=== PATIENT | female | born 1985 | race Caucasian/White ===

== ENCOUNTER 2019-02-28 09:56 | Outpatient (REF) | payer BC, SELFPAY ==
[2019-02-28 12:54] LABS: ALT 31 U/L (12-78); AST 23 U/L (15-37); Albumin 3.7 g/dL (3.4-5.0); Alkaline Phosphatase 74 U/L (46-116); Anion Gap 12.6 mmol/L (3-11); BUN 15 mg/dL (7-18); Bilirubin, Total 0.4 mg/dL (0.2-1.0); CO2 25.4 mmol/L (21.0-32.0); CREATININE 0.75 mg/dL (0.55-1.02); Calcium 8.3 mg/dL (8.5-10.1); Calculated LDL 133 mg/dL; Chloride 102 mmol/L (98-107); Cholesterol 194 mg/dL (50-200); Glucose 93 mg/dL (70-100); HDL Cholesterol 40 mg/dL (40-60); Potassium 3.5 mmol/L (3.5-5.1); Sodium 140 mmol/L (136-145); Total Protein 7.3 g/dL (6.4-8.2); Triglyceride 105 mg/dL (30-150)
== END 2019-02-28 10:16 ==
LOC: NCHCN 09:56
PROVIDERS: PCP Family Medicine; Visit Provider Family Medicine
DX: Z00.00 Encounter for general adult medical examination without abnormal findings (principal); F41.8 Other specified anxiety disorders; J45.20 Mild intermittent asthma, uncomplicated; E66.9 Obesity, unspecified
CPT/HCPCS: 80053; 80061; 83721

== ENCOUNTER 2019-04-13 19:18 | Outpatient (REF) | payer BC, SELFPAY ==
--- NOTE | 2019-04-13 14:40 | PAPFT_PTH ---
PATIENT: Francesca Figueroa LOC: [facility] U#:[id number] AGE/SX: 33/F ROOM: RE04/13/[address]: Denae Garcia : 1985 BED: DIS: 04/13/2019 SPEC #: [id number] RECD: 04/14/19 13:01 STATUS: CY REShreya #: [id number] BAR: 04/13/19 14:[address]: Denae Garcia DEPT: [facility] Cytology RECD BY: Chantal Jackson ENTERED: 04/14/19 13:01 SP TYPE: PAPFT OTHR DR: Kadi Tovar Tissues: 1 - CX/ENDOCX FOR PAP SMEARS Procedures: PAP THIN PREP/UVM Screening HPV DNA PROBE Comments: [id number] (CHLAMYDIA/GC)
[2019-04-17 14:13] LABS: Chlamydia Result Negative; GC Result Negative; Specimen Description SEE COMMENTS
== END 2019-04-13 19:38 ==
LOC: NCHCN 19:18
PROVIDERS: PCP Family Medicine; Visit Provider Nurse Practitioner Family
DX: Z00.00 Encounter for general adult medical examination without abnormal findings (principal); Z11.3 Encounter for screening for infections with a predominantly sexual mode of transmission; Z12.4 Encounter for screening for malignant neoplasm of cervix; Z11.51 Encounter for screening for human papillomavirus (HPV); Z01.419 Encounter for gynecological examination (general) (routine) without abnormal findings
CPT/HCPCS: 87491; 87591; 88142; 87624

== ENCOUNTER 2019-05-29 13:06 | Outpatient (REF) | payer BC, SELFPAY ==
[2019-05-29 21:31] LABS: TSH 4.64 uIU/mL (0.36-3.74)
== END 2019-05-29 13:26 ==
LOC: NCHCN 13:06
PROVIDERS: PCP Family Medicine; Visit Provider Internal Medicine
DX: I10 Essential (primary) hypertension (principal); R53.83 Other fatigue; R05 Cough; M54.6 Pain in thoracic spine
CPT/HCPCS: 85027; 84443

== ENCOUNTER 2019-06-01 17:13 | Outpatient (REF) | payer BC, SELFPAY ==
[2019-06-01 21:58] LABS: HCT 33.1 % (36.0-46.0); HGB 11.5 g/dL (12.0-15.5); Mean Corp. HGB Concentration 34.7 g/dL (32.0-36.0); Mean Corpuscular Hemoglobin 24.1 pg (27.0-33.0); Mean Corpuscular Volume 69.2 fL (80-95); Mean Platelet Volume 12.4 fL (8.0-11.0); RBC 4.78 m/cumm (4.00-5.20); RBC Distribution Width 14.3 % (11.7-14.6); White Blood Cell Count 12.49 k/cumm (4.4-10.8)
[2019-06-01 22:28] LABS: Platelet Count 230 x1000/uL (130-400)
== END 2019-06-01 17:33 ==
LOC: NCHCO 17:13
PROVIDERS: PCP Family Medicine; Visit Provider Family Medicine
DX: R05 Cough (principal); M54.6 Pain in thoracic spine; I10 Essential (primary) hypertension; R53.83 Other fatigue
CPT/HCPCS: 85027

== ENCOUNTER 2019-06-13 16:22 | Outpatient (REF) | payer BC, SELFPAY ==
[2019-06-13 22:56] LABS: Total Iron Binding Capacity 405 ug/dL (250-450)
[2019-06-13 23:12] LABS: Ferritin 37 ng/mL (8-388); T4 8.4 ug/dL (4.5-12.5)
[2019-06-16 15:53] LABS: Hemoglobinopathy Interpretat Interpretation:; Other Hemoglobin SEE COMMENTS
== END 2019-06-13 16:42 ==
LOC: NCHCN 16:22
PROVIDERS: PCP Family Medicine; Visit Provider Nurse Practitioner Family
DX: D50.9 Iron deficiency anemia, unspecified (principal); R94.6 Abnormal results of thyroid function studies
CPT/HCPCS: 85027; 82728; 83020; 83550; 84436

== ENCOUNTER 2019-10-30 12:46 | Outpatient (CLI) | payer BC, SELFPAY ==
[2019-10-30 13:21] LABS: PTT Activated 19.8 sec (21.0-31.4)
[2019-10-30 14:35] LABS: TSH (W/Ref FT4) 2.68 uIU/mL (0.36-3.74)
== END 2019-10-30 13:06 ==
PROVIDERS: PCP Family Medicine; Visit Provider Nurse Practitioner Family
DX: D68.9 Coagulation defect, unspecified (principal); R94.6 Abnormal results of thyroid function studies
CPT/HCPCS: 36415; 84443; 85730

== ENCOUNTER 2020-03-06 17:54 | Outpatient (REF) | payer BC, SELFPAY ==
[2020-03-06 21:54] LABS: HCT 35.6 % (36.0-46.0); HGB 11.9 g/dL (12.0-15.5); Mean Corp. HGB Concentration 33.4 g/dL (32.0-36.0); Mean Corpuscular Hemoglobin 23.2 pg (27.0-33.0); Mean Corpuscular Volume 69.4 fL (80-95); Mean Platelet Volume 11.5 fL (8.0-11.0); Platelet Count 184 x1000/uL (130-400); RBC 5.13 m/cumm (4.00-5.20); RBC Distribution Width 14.9 % (11.7-14.6); White Blood Cell Count 11.93 k/cumm (4.4-10.8)
[2020-03-06 22:19] LABS: ALT 24 U/L (14-59); AST 21 U/L (15-37); Alkaline Phosphatase 60 U/L (46-116); BUN 16 mg/dL (7-18); Bilirubin, Total 0.3 mg/dL (0.2-1.0); CREATININE 0.74 mg/dL (0.55-1.02); Calcium 9.6 mg/dL (8.5-10.1); Chloride 99 mmol/L (98-107); Glucose 100 mg/dL (74-106); Potassium 3.9 mmol/L (3.5-5.1); Sodium 137 mmol/L (136-145); Total Protein 7.3 g/dL (6.4-8.2)
== END 2020-03-06 18:14 ==
LOC: NCHCN 17:54
PROVIDERS: PCP Family Medicine; Visit Provider Family Medicine
DX: R53.83 Other fatigue (principal)
CPT/HCPCS: 80053; 85027; 84443

== ENCOUNTER 2020-04-17 13:57 | Outpatient (REF) | payer BC, SELFPAY ==
[2020-04-22 18:06] LABS: SARS-CoV-2 RNA Undetected (Undetected); SARS-CoV-2 Specimen Source Nasopharynx
== END 2020-04-17 14:17 ==
LOC: NCHCN 13:57
PROVIDERS: PCP Family Medicine; Visit Provider Family Medicine
DX: Z20.828 Contact with and (suspected) exposure to other viral communicable diseases (principal)
CPT/HCPCS: U0003

== ENCOUNTER 2020-06-10 19:09 | Outpatient (REF) | payer BC, SELFPAY ==
[2020-06-13 15:27] LABS: Patient Race White; SARS-CoV-2 RNA Undetected (Undetected); SARS-CoV-2 Specimen Source Nasal
== END 2020-06-10 19:29 ==
LOC: NCHCN 19:09
PROVIDERS: PCP Family Medicine; Visit Provider Family Medicine
DX: R05 Cough (principal)
CPT/HCPCS: U0003

== ENCOUNTER 2020-08-02 22:17 | Outpatient (REF) | payer BC, SELFPAY ==
[2020-08-06 10:07] LABS: COVID-19 RT-PCR Result NEGATIVE (Negative)
== END 2020-08-02 22:37 ==
LOC: NCHCN 22:17
PROVIDERS: PCP Family Medicine; Visit Provider Family Medicine
DX: Z20.828 Contact with and (suspected) exposure to other viral communicable diseases (principal)
CPT/HCPCS: U0003

== ENCOUNTER 2020-08-27 14:29 | Outpatient (REF) | payer BC, SELFPAY ==
[2020-08-29 03:39] LABS: COVID-19 RT-PCR UVMMC Result Negative (Negative)
== END 2020-08-27 14:49 ==
LOC: NCHCN 14:29
PROVIDERS: PCP Family Medicine; Visit Provider Family Medicine
DX: Z20.828 Contact with and (suspected) exposure to other viral communicable diseases (principal)
CPT/HCPCS: U0003

== ENCOUNTER 2021-10-07 15:27 | Outpatient (REF) | payer BC, SELFPAY ==
[2021-10-07 21:25] LABS: Anion Gap 9.3 mmol/L (3-11); BUN 10 mg/dL (7-18); CO2 26.7 mmol/L (21.0-32.0); CREATININE 0.8 mg/dL (0.55-1.02); Calcium 8.7 mg/dL (8.5-10.1); Chloride 102 mmol/L (98-107); Glucose 94 mg/dL (74-106); Potassium 3.9 mmol/L (3.5-5.1); Sodium 138 mmol/L (136-145)
[2021-10-07 21:37] LABS: HCT 39.9 % (36.0-46.0); HGB 12.5 g/dL (11.2-15.7); MCH 22.6 pg (27.0-33.0); MCHC 31.3 % (32.0-36.0); MCV 72.3 fL (80-95); MPV 11.4 fL (8.0-11.0); Platelet Count 302 10^3/uL (130-400); RBC 5.52 10^6/uL (3.93-5.22); RDW 14.1 % (11.7-14.6); WBC 8.19 10^3/uL (4.4-10.8)
== END 2021-10-07 15:28 | disposition home or self-care (01) ==
LOC: NCHCN 15:27
PROVIDERS: PCP Family Medicine; Visit Provider Nurse Practitioner Family
DX: I10 Essential (primary) hypertension (principal)
CPT/HCPCS: 80048; 85027

== ENCOUNTER 2021-12-15 16:08 | Outpatient (REF) | payer BC, SELFPAY | END 2021-12-15 16:09 | disposition home or self-care (01) | LOC: NCHCN 16:08 | PROVIDERS: PCP Family Medicine; Visit Provider Family Medicine | DX: N39.0 Urinary tract infection, site not specified (principal) | CPT/HCPCS: 87077; 87086; 87186 ==

== ENCOUNTER 2023-12-29 15:55 | Outpatient (REF) | payer BC, SELFPAY ==
[2023-12-29 22:07] LABS: HCT 35.6 % (36.0-46.0); HGB 11.8 g/dL (11.2-15.7); MCH 23.6 pg (27.0-33.0); MCHC 33.1 % (32.0-36.0); Platelet Count 256 10^3/uL (130-400); RBC 4.99 10^6/uL (3.93-5.22); RDW 13.7 % (11.7-14.6); RDW-SD 34.6 fL; WBC 12.46 10^3/uL (4.4-10.8)
[2023-12-29 22:24] LABS: ALT 35 U/L (14-59); AST 22 U/L (15-37); Albumin 4.1 g/dL (3.4-5.0); Alkaline Phosphatase 76 U/L (46-116); Anion Gap 10.2 mmol/L (3-11); BUN 18 mg/dL (7-18); Bilirubin, Total 0.3 mg/dL (0.2-1.0); CO2 27.8 mmol/L (21.0-32.0); CREATININE 0.9 mg/dL (0.55-1.02); Calcium 9.3 mg/dL (8.5-10.1); Calculated LDL 99 mg/dL (<100); Chloride 101 mmol/L (98-107); Cholesterol 194 mg/dL (<200); Estimated GFR 84.44 (mL/min/1.73m2); Glucose 108 mg/dL (74-106); HDL Cholesterol 42 mg/dL (40-60); Potassium 3.7 mmol/L (3.5-5.1); Sodium 139 mmol/L (136-145); Total Protein 7.5 g/dL (6.4-8.2); Triglyceride 269 mg/dL (<150)
[2023-12-29 22:40] LABS: MCV 71 fL (80-95)
[2023-12-29 22:43] LABS: Hemoglobin A1C 6.1 % (<5.7)
== END 2023-12-29 15:56 | disposition home or self-care (01) ==
LOC: NCHCN 15:55
PROVIDERS: PCP Nurse Practitioner Family; Visit Provider Nurse Practitioner Family
DX: Z00.00 Encounter for general adult medical examination without abnormal findings (principal); I10 Essential (primary) hypertension; E66.8 Other obesity; R73.09 Other abnormal glucose
CPT/HCPCS: 80053; 80061; 85027; 83036

== ENCOUNTER 2024-04-18 15:23 | Outpatient (REF) | payer BC, SELFPAY ==
--- OUTSIDE RECORDS SUMMARY | 2024-04-18 15:27 | XMS_ITS | Clinical Summary ---
Author Organization [facility] [place] [address] Care Team Providers Care Ground Support Equipment Assembler Name Role Phone Kadi Tovar MD Primary Care Provider [phone] Allergies No known active allergies Medications Medication Sig Dispensed Refills Start Date End Date Status hydrocortisone 2.5 % Ointment Apply topically to eyelids twice daily for 7 days. 20 g 08/31/2018 Active Active Problems No known active problems Social History Tobacco Use Types Packs/Day Years Used Date Smoking Tobacco: Never Smokeless Tobacco: Never Sex and Gender Information Value Date Recorded Sex Assigned at Not on file Gender Identity Not on file Sexual Orientation Not on file Plan of Treatment Health Maintenance Due Date Last Done Comments HIV screen 2004 Hepatitis C Screening 2004 Hepatitis B vaccine (0-59 yrs) (1) 2005 Tdap adult 2005 Tetanus vaccine 2005 HPV test 2016 PAP Smear 2016 Covid-19 Vaccine ( - 2022-24 season) 2023 Influenza (Flu) vaccine (1 o f 1 - Influenza standard series) 04/30/2024 Care Teams Ground Support Equipment Assembler Relationship Specialty Start Date End Date Kadi Tovar MD [address] [place] [address] PCP - General Family Medicine 08/31/18
--- OUTSIDE RECORDS SUMMARY | 2024-04-18 15:28 | XMS_ITS | Clinical Summary ---
Author Organization [facility] Address [address] [place] [address] Care Team Providers Care Ink Maker Name Role Phone Denae Garcia YOSVANY Primary Care Provider [phone] Allergies No known active allergies Medications Medication Sig Dispensed Refills Start Date End Date Status acyclovir (ZOVIRAX) 800 mg tablet ACYCLOVIR 800 MG TABS 03/18/2021 Active FLUoxetine (PROZAC) 10 mg tablet 1 Tablet every 24 hours. 05/03/2020 Active fluticasone propionate (FLOVENT HFA) 44 mcg/actuation inhaler FLOVENT HFA 44 MCG/ACT INHA 03/14/2020 Active inhalational spacing device (AEROCHAMBER MINI) AEROCHAMBER MINI CHAMBER ANGELO 03/14/2020 Active losartan (COZAAR) 25 mg tablet 1 Tablet every 24 hours. 09/27/2020 Active lisinopriL (PRINIVIL) 10 mg tablet Take by mouth daily. Acti ve Encounters Date Type Department Care Team Description 04/11/2024 Telephone [facility] Bariatric Surgery [facility] [address] [place], [place] [address] Bariatric Surgery, Physician Hn Referral Request from Last 3 Months Medical History Medical History Date Comments Hypertension Asthma Social History Tobacco Use Types Packs/Day Years Used Date Smoking Tobacco: Never Smokeless Tobacco: Never Alcohol Use Standard Drinks/Week Comments Yes 0 (1 standard drink = 0.6 oz pur e alcohol) occasionally PHQ-2 Answer Date Recorded PHQ-2 SUBTOTAL 0 07/25/2021 Sex and Gender Information Value Date Recorded Sex Assigned at Not on file Gender Identity Not on file Sexual Orientation Not on file Obstetrics History Last Filed Vital Signs Vital Sign Reading Time Taken Comments Blood Pressure 121/64 07/25/2021 0820 EST Pulse 80 07/25/2021 0820 EST Temperature 36.3 ??C (97.3 ??F) 07/25/2021 0820 EST Respiratory Rate 18 07/25/2021 0820 EST Oxygen Saturation 99% 07/25/2021 0820 EST Inhaled Oxygen Concentration - - Weight 76.1 kg (167 lb 12.8 oz) 12/04/2013 1557 EDT Height 144.8 cm (4' 9) 12/04/2013 1557 EDT Body Mass Index 36.31 12/04/2013 1557 EDT Plan of Treatment Health Maintenance Due Date Last Done Comments Hepatitis C Screen 1986 Hepatitis B Vaccine (1 of 3 - 19+ 3-dose series) 05/11 COVID-19 Vaccine (2022- season) 2023 Care Teams Ink Maker Relationship Specialty Start Date End Date Denae Garcia FNP [address] [place] [phone] PCP - General 07/25/21
--- OUTSIDE RECORDS SUMMARY | 2024-04-18 15:28 | XMS_ITS | Encounter Summary ---
Author Organization [facility] Address [address] [place] [address] Care Team Providers Care Custom Protection Officer Name Role Phone Prince Perla MD Primary Care Provider Unavailsaul e Reason for Visit * Reason Comments Diabetes Encounter Details Date Type Department Care Team (Latest Contact Info) Description 12/04/2013 16:00 EDT Office Visit [facility] Endocrinology - [address] [address] Chaz Nettles MD PhD [address] [place] [address] [address] [place] [address] Steroid-induced hyperglycemia (Primary Dx) Social History Tobacco Use Types Packs/Day Years Used Date Smoking Tobacco: Never Alcohol Use Standard Drinks/Week Comments Not Asked 0 (1 standard drink = 0.6 oz pur e alcohol) Sex and Gender Information Value Date Recorded Sex Assigned at Not on file Gender Identity Not on file Sexual Orientation Not on file documented as of this encounter Last Filed Vital Signs Vital Sign Reading Time Taken Comments Blood Pressure 110/62 12/04/2013 1557 EDT Pulse 78 12/04/2013 1557 EDT Temperature - - Respiratory Rate - - Oxygen Saturation - - Inhaled Oxygen Concentration - - Weight 76.1 kg (167 lb 12.8 oz) 12/04/2013 1557 EDT Height 144.8 cm (4' 9) 12/04/2013 1557 EDT Body Mass Index 36.31 12/04/2013 1557 EDT documented in this encounter Discharge Diagnoses Diagnosis 250.01 DIABETES UNCOMPL FRANCES-TYPE I[ICD-9-CM] documented in this encounter Patient Instructions * Patient Instructions* Chaz Nettles MD - 12/04/2013 16:15 EDT Your A1c was 5.6%-average over 6 wks. 5.7-6.4% is considered pre-diabetes 6.5% or higher is diabetes type 2. Ways to avoid it: Keep active, exercise 30-60 mins/d. May want to try a 1500 calorie plan with no more than 150 gms of carbs/d. 30-40 gms carbs/meal with2-15 gm snacks/d.; Your glucose was 135 Normal glucose is 70-99 fasting --after eating in normals is ?-probably 30 points higher. documented in this encounter Progress Notes * Chaz Nettles MD - 12/04/2013 1615 EDT [facility] Diabetes Initial Evaluation Note CHIEF COMPLAINT: Francesca Figueroa presents with Hyperglycemia after steroid use Adverse reaction to steroid. HPI: SERA Ma is a 28-year-old who is adopted in so she does not know her family history. She states that usually her health is good, but she developed pneumonia and was started on oral steroids. She is not sure about the doses used, but she thinks it was 60-100 mg several times a day. She had a severe adverse reaction to the medication. She stated that she had trouble with insomnia,, heart palpitations, and she was noted to have an elevated blood sugar. It also sounds like she got confused. We do not really have all the information here, but I do see that she had a blood sugar of 135 in her records, although she does not believe that was done fasting. She has had trouble with her weight for a long time. She tells me, that she has started lifting weights and is trying to eat healthier since her doctor told her that her blood sugar was elevated at the end of September. She is approaching this by not eating, sugar. She tells me, that she feels a lotbetter. Denies blurred vision, no chest pain or SOB, no diarrhea or constip, no polyuria or nocturia, no paraesthesias. States that she is a chocoholic, and used to binge on sugar. Family history is reviewed and includes the following: adopted and does not know. Francesca Figueroa has a history of being in normal glycemic control until steroid use. Patient has a history of being compliant most of the time with medical therapy. Patient's home regimen consists of currently has no medications in their medication list. History Substance Use Topics ??? Smoking status: Never Smoker ??? Smokeless tobacco: Not on file ??? Alcohol Use: Not on file Never been , menses are regular. Not planning a at this time. Supportive mother. 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 REVIEW OF SYSTEMS: See HPI, Ten point ROS otherwise negative. PHYSICAL EXAMINATION: A1c is 5.6% Vitals: BP 110/62 Pulse 78 Ht 144.8 cm (57) Wt 76.114 kg (167 lb 12.8 oz) BMI 36.3 kg/m2 LMP 11/11/2013 BMI: Body mass index is 36.3 kg/(m^2). Petite with central obesity. No pathologic striae. General appearance - alert, well appearing, and in no distress and overweight Mental status - alert, oriented to person, place, and time Eyes - pupils equal and reactive, extraocular eye movements intact Mouth - mucous membranes moist, pharynx normal without lesions Neck - supple, no significant adenopathy Chest - clear to auscultation, no wheezes, rales or rhonchi, symmetric air entry Heart - normal rate, regular rhythm, normal S1, S2, no murmurs, rubs, clicks or gallops Abdomen - soft, nontender, nondistended, no masses or organomegaly Back exam - full range of motion, no tenderness, palpable spasm or pain on motion Neurological - alert, oriented, normal speech, no focal findings or movement disorder noted Musculoskeletal - no joint tenderness, deformity or swelling Extremities - peripheral pulses normal, no pedal edema, no clubbing or cyanosis Skin - normal coloration and turgor, no rashes, no suspicious skin lesions noted Funduscopic: no diabetic retinopathy Feet: Good hygiene of the nails with no hypertrophy or onychomycosis. There are no osseous deformities or open lesions. Vibratory sense is intact. No pedal edema. Dorsalis pedis pulses and tibial pulses are felt. ASSESSMENT/PLAN: This young adult has central obesity and could avoid DM by continuing to be active and losing wt. Her A!C today shows that she does not have pre-diabetes or overt DM at this time. Steroids can lead to hyperglycemia in susceptible people--and this may be the warning shot to stimulate healthier choices in diet and daily exercise. No sign of Thee's at this time. Steroids can lead to high glucoses and if dehydrated can lead to palpitations. Can also create chichi in some. Will need to avoid unless crucial for health--might want to use inhalers rather than oralsteroids if possible for lung disease. Goals and plan to achieve these discussed. Systolic blood pressure less than 140. And diastolic blood pressure less than 80. No DM-avoid A1c 5.7% or greater as long as possible. LDL cholesterol: 70 to 99. HDL males >40 and females >50 mgm/dl Triglycerides fasting <150 mgm/dl *More or less stringent glycemic goals may be appropriate for individual patients. Goals should be individualized based on: duration of diabetes age/life expectancy comorbid conditions known CVD or advanced microvascular complications hypoglycemia unawareness individual patient considerations Based on patient characteristics and response to therapy, lower SBP targets may be appropriate. * In individuals with overt CVD, a lower LDL-C goal of <70 mg/dl (1.8 mmol/l), using a high dose of a statin, is an option. CHAZ NETTLES MD 12/04/2013 16:15 * Becca Deleon - 12/04/2013 1554 EDT Fingerstick blood sample obtained for POCT A1C for hemoglobin performed for this date of service atthe order of Dr. Chaz Nettles documented in this encounter Plan of Treatment Not on file documented as of this encounter Procedures Procedure Name Priority Date/Time Associated Diagnosis Comments POCT HEMOGLOBIN A1C Routine 12/04/2013 1 6:03 EDT Steroid-induced hyperglycemia documented in this encounter Results * POCT HEMOGLOBIN A1C (12/04/2013 16:03 EDT) Hemoglobin A1c, POC 5.6 5.7 POINT OF CARE 12/04/2013 16:0 3 EDT Chaz Nettles MD PhD POINT OF CARE ALISA T ORDERABLES POINT OF CARE documented in this encounter Visit Diagnoses Diagnosis Steroid-induced hyperglycemia- Primary Other abnormal glucose documented in this encounter Care Teams Custom Protection Officer Relationship Specialty Start Date End Date Prince Perla MD PCP - General 10/31/13 07/24/21 documented as of this encounter
--- OUTSIDE RECORDS SUMMARY | 2024-04-18 15:28 | XMS_ITS | Encounter Summary ---
Author Organization [facility] Address [address] [place] [address] Care Team Providers Care Dog Or Animal Sitter Name Role Phone Prince Perla MD Primary Care Provider Denae Valle Primary Care Provider [phone] Encounter Details Date Type Department Care Team (Late st Contact Info) Description 08/03/2020 Lab Requisition [facility] Pathology & Laboratory Medicine - [facility] [address] [place] [address] Outr Resulting Lab, Provider Social History Tobacco Use Types Packs/Day Years Used Date Smoking Tobacco: Never Alcohol Use Standard Drinks/Week Comments Not Asked 0 (1 standard drink = 0.6 oz pur e alcohol) Sex and Gender Information Value Date Recorded Sex Assigned at Not on file Gender Identity Not on file Sexual Orientation Not on file documented as of this encounter Plan of Treatment Not on file documented as of this encounter Procedures Procedure Name Priority Date/Time Associated Diagnosis Comments DO NOT ORDER STANDALONE - [facility] COVID TEST Today 08/02/2020 13:10 EST COVID-19 TESTING Routine 08/02/2020 13:1 0 EST documented in this encounter Results * DO NOT ORDER STANDALONE - [facility] COVID TEST (08/02/2020 13:10 EST) COVID-19 rt-PCR Result NEGATIVE Negative 08/06/2020 10:02 EST [facility] Comment: 2019-novel Coronavirus (2019-nCoV) not detected by the qRT-PCR assay. Consider testing for other respiratory viruses or re-collecting for 2019-nCoV testing. Note: Optimum timing for peak viral levels during infections caused by 2019-nCoV have not been determined. Collection of multiple specimens from the same patient may be necessary to detect the virus. Limitations Positive results are indicative of active infection with SARS-CoV-2 but do not rule out bacterial infection or co-infection with other viruses. The agent detected may not be the definite cause of disease. In addition, detection of viral RNA may not indicate the presence of infectious virus or that SARS-CoV-2 is the causative agent for clinical symptoms. Negative results do not preclude SARS-CoV-2 infection and should not be used as the sole basis for patient management decisions. Negative results must be combined with clinical observations, patient history, and epidemiological information. False negative results may also occur if amplification inhibitors are present in the specimen or if inadequate numbers of organisms are present in the specimen. Optimum specimen types and timing for peak viral levels during infections caused by SARS-CoV-2 have not been fully determined. Collection of multiple specimens (types and time points) from the same patient may be necessary to detect the virus. The test was validated for use with upper respiratory specimens obtained via nasopharyngeal or oropharyngeal swabs in VTM, UTM, M4, M5, M6, saline, and MTM media. The performance of this test has not been established for other specimens. Specimens collected using other FDA recommended Specimen Collection Materials listed in the FDA COVID-19 [employer] communication (November 23, 2019) are processed with the caveat that they were not all validated for use with this test and the result must be interpreted in this context. Furthermore, a false negative results may occur if a specimen is improperly collected, transported or handled. If the virus mutates in the RT-PCR target region, SARS-CoV-2 may not be detected or may be detected less predictably. Inhibitors or other types of interference may produce a false negative result. An interference study evaluating the effect of common cold medications was not performed. This test is not FDA-cleared but its performance characteristics were established by our CLIA-certified, CAP-accredited, high complexity laboratory in accordance with CLIA regulations, [employer] (CAP) guidelines (Nov 16, 2019), and FDA guidance (Oct 28, 2019). This test is only for use under the Food and Drug Administration's Emergency Use Authorization. Swab ENTIRE NASOPHARYNX / Unknown 08/02/2020 13:10 EST 08/03/2020 22:38 EST Provider Outr Resulting Lab MICROBIOLOGY - GENERAL ORDERABLES [facility] [place], [place] * COVID-19 TESTING (08/02/2020 13:10 EST) COVID-19 rt-PCR Result NEGATIVE Negative 08/06/2020 10:02 EST [facility] Comment: 2019-novel Coronavirus (2019-nCoV) not detected by the qRT-PCR assay. Consider testing for other respiratory viruses or re-collecting for 2019-nCoV testing. Note: Optimum timing for peak viral levels during infections caused by 2019-nCoV have not been determined. Collection of multiple specimens from the same patient may be necessary to detect the virus. Limitations Positive results are indicative of active infection with SARS-CoV-2 but do not rule out bacterial infection or co-infection with other viruses. The agent detected may not be the definite cause of disease. In addition, detection of viral RNA may not indicate the presence of infectious virus or that SARS-CoV-2 is the causative agent for clinical symptoms. Negative results do not preclude SARS-CoV-2 infection and should not be used as the sole basis for patient management decisions. Negative results must be combined with clinical observations, patient history, and epidemiological information. False negative results may also occur if amplification inhibitors are present in the specimen or if inadequate numbers of organisms are present in the specimen. Optimum specimen types and timing for peak viral levels during infections caused by SARS-CoV-2 have not been fully determined. Collection of multiple specimens (types and time points) from the same patient may be necessary to detect the virus. The test was validated for use with upper respiratory specimens obtained via nasopharyngeal or oropharyngeal swabs in VTM, UTM, M4, M5, M6, saline, and MTM media. The performance of this test has not been established for other specimens. Specimens collected using other FDA recommended Specimen Collection Materials listed in the FDA COVID-19 [employer] communication (November 23, 2019) are processed with the caveat that they were not all validated for use with this test and the result must be interpreted in this context. Furthermore, a false negative results may occur if a specimen is improperly collected, transported or handled. If the virus mutates in the RT-PCR target region, SARS-CoV-2 may not be detected or may be detected less predictably. Inhibitors or other types of interference may produce a false negative result. An interference study evaluating the effect of common cold medications was not performed. This test is not FDA-cleared but its performance characteristics were established by our CLIA-certified, CAP-accredited, high complexity laboratory in accordance with CLIA regulations, [employer] (CAP) guidelines (Nov 16, 2019), and FDA guidance (Oct 28, 2019). This test is only for use under the Food and Drug Administration's Emergency Use Authorization. Performing Lab [facility] 08/06/2020 10:02 EST [facility] Swab 08/02/2020 13:1 0 EST 08/03/2020 22:38 EST Provider Outr Resulting Lab MICROBIOLOGY - GENERAL ORDERABLES [facility] [address] [place] [address] [facility] [place] documented in this encounter Visit Diagnoses Not on filedocumented in this encounter Care Teams Dog Or Animal Sitter Relationship Specialty Start Date End Date Prince Perla MD PCP - General 10/31/13 07/24/21 Denae Garcia FNP [address] [place] [phone] PCP - General 07/25/21 documented as of this encounter
--- OUTSIDE RECORDS SUMMARY | 2024-04-18 15:28 | XMS_ITS | Encounter Summary ---
Author Organization [facility] Address [address] [place] [address] Care Team Providers Care Supervisor Pairing And Inspecting Name Role Phone Denae Garcia YOSVANY Primary Care Provider [phone] Reason for Visit * Reason Comments Rash pt states pt states having itchy raised body rash since wednesday getting progressivly worse with unkown unenviromental exposure Encounter Details Date Type Department Care Team (Latest Contact Info) Description 07/25/2021 8:22 EST - 07/25/2021 8:46 EST Hospital Encounter [facility] - [facility] [address] [place] [address] [id number] Chandu Wang MD [address] [place] [address] Acute urticaria (Primary Dx) Discharge Disposition: Home or Self Care Social History Tobacco Use Types Packs/Day Years [...] EST Inhaled Oxygen Concentration - - Weight - - Height - - Body Mass Index - - documented in this encounter Discharge Instructions * Attachments The following attachments cannot be sent through Care Everywhere. * Urticaria (Thai) documented in this encounter Medications at Time of Discharge Medication Sig Dispensed Refills Start Date End Date acyclovir (ZOVIRAX) 800 mg tablet ACYCLOVIR 800 MG TABS 03/18/2021 FLUoxetine (PROZAC) 10 mg tablet 1 Tablet every 24 hours. 05/03/2020 fluticasone propionate (FLOVENT HFA) 44 mcg/actuation inhaler FLOVENT HFA 44 MCG/ACT INHA 03/14/2020 inhalational spacing device (AEROCHAMBER MINI) AEROCHAMBER MINI CHAMBER ANGELO 03/14/2020 lisinopriL (PRINIVIL) 10 mg tablet Take by mouth daily. losartan (COZAAR) 25 mg tablet 1 Tablet every 24 hours. 09/27/2020 hydrOXYzine (ATARAX) 25 mg tablet Take 1 Tablet by mouth 3 times daily as needed for up to 7 days for Itching. 20 Tablet 07/25/2021 08/01/2021 predniSONE (DELTASONE) 20 mg tablet Take 1 Tablet by mouth daily for 7 days. 7 Tablet 07/25/2021 08/01/2021 documented as of this encounter Ordered Prescriptions Prescription Sig Dispensed Refills Start Date End Da te predniSONE (DELTASONE) 20 mg tablet Take 1 Tablet by mouth daily for 7 days. 7 Tablet 07/25/2021 08/01/2021 hydrOXYzine (ATARAX) 25 mg tablet Take 1 Tablet by mouth 3 times daily as needed for up to 7 days for Itching. 20 Tablet 07/25/2021 08/01/2021 documented in this encounter Discharge Disposition Disposition Code Departure Means Destination Home or Self Assisted documented in this encounter ED Notes * Chandu Wang MD - 07/25/2021 0843 EST DOS: 07/25/2021 Chief Complaint: Chief Complaint Patient presents with ??? Rash pt states pt states having itchy raised body rash since wednesday getting progressivly worse with unkown unenviromental exposure Assessment and Plan Acute urticaria. Rx hydroxyzine and low-dose prednisone, recheck if not better in 2 weeks. Final diagnoses: Acute urticaria Procedures No results found for this visit on 07/25/21. Radiology orders: None Consult orders: None Imaging Results None No orders to display The patient is a 36 y.o. female who presents today with Rash (pt states pt states having itchy raised body rash since wednesday getting progressivly worse with unkown unenviromental exposure ) Patient has had itchy hives for about 3 days. They began on her chest and breast area not long after acquiring a new bra. She denies swelling of her lips or tongue, difficulty breathing, dizziness, or GI symptoms. She has a history of allergy to cats but this generally only causes some eye itching. Review of Systems Constitutional: Negative for chills and fever. HENT: Negative for trouble swallowing. Respiratory: Negative for shortness of breath and wheezing. Skin: Positive for rash. Neurological: Negative for dizziness. No current facility-administered medications for this encounter. Current Outpatient Medications Medication Sig Dispense Refill ??? acyclovir (ZOVIRAX) 800 mg tablet ACYCLOVIR 800 MG TABS ??? FLUoxetine (PROZAC) 10 mg tablet 1 Tablet every 24 hours. ??? fluticasone propionate (FLOVENT HFA) 44 mcg/actuation inhaler FLOVENT HFA 44 MCG/ACT INHA ??? hydrOXYzine (ATARAX) 25 mg tablet Take 1 Tablet by mouth 3 times daily as needed for up to 7 days for Itching. 20 Tablet 0 ??? inhalational spacing device (AEROCHAMBER MINI) AEROCHAMBER MINI CHAMBER ANGELO ??? lisinopriL (PRINIVIL) 10 mg tablet Take by mouth daily. ??? losartan (COZAAR) 25 mg tablet 1 Tablet every 24 hours. ??? predniSONE (DELTASONE) 20 mg tablet Take 1 Tablet by mouth daily for 7 days. 7 Tablet 0 No Known Allergies There are no problems to display for this patient. Past Medical History: Diagnosis Date ??? Asthma ??? Hypertension Social History Tobacco Use ??? Smoking status: Never Smoker ??? Smokeless tobacco: Never Used Substance Use Topics ??? Alcohol use: Yes Comment: occasionally ??? Drug use: Never History reviewed. No pertinent family history. BP 121/64 Pulse 80 Temp 97.3 ??F (36.3 ??C) Resp 18 SpO2 99% Physical Exam Constitutional: General: She is not in acute distress. Pulmonary: Breath sounds: Normal breath sounds. No stridor. No wheezing. Skin: General: Skin is warm and dry. Comments: She has what appear to be urticarial wheals on her chest, some of which are excoriated. PCP: Denae Garcia No supervision required. Urgent Care Course A medical screening exam was performed. DISPOSITION: Discharged The patient's pain was managed to an adequate level weighing risk vs. benefit of further medications. Upon departure from [facility], the patient's pain was 0 on a zero to ten scale. Any further pain treatment will be at the discretion of the provider following up with the patient based on their clinical assessment . Condition at departure from the [facility] : Stable [facility] 07/25/2021 8:43 * Judy Rosario RN - 07/25/2021 0825 EST Pt states rash to chest , arm and legs for past 5 days. * Indra Bearden RN - 07/25/2021 0820 EST Pt states is covid vaccinated Denies covid testing within last 2 weeks covid screen negative documented in this encounter Plan of Treatment Not on file documented as of this encounter Visit Diagnoses Diagnosis Acute urticaria- Primary Other specified urticaria documented in this encounter Historical Medications * This list may reflect changes made after this encounter. Medication Sig Dispensed Refills Start Date End Date lisinopriL (PRINIVIL) 10 mg tablet Take by mouth daily. losartan (COZAAR) 25 mg tablet 1 Tablet every 24 hours. 09/27/2020 inhalational spacing device (AEROCHAMBER MINI) AEROCHAMBER MINI CHAMBER ANGELO 03/14/2020 fluticasone propionate (FLOVENT HFA) 44 mcg/actuation inhaler FLOVENT HFA 44 MCG/ACT INHA 03/14/2020 FLUoxetine (PROZAC) 10 mg tablet 1 Tablet every 24 hours. 05/03/2020 acyclovir (ZOVIRAX) 800 mg tablet ACYCLOVIR 800 MG TABS 03/18/2021 added in this encounter Care Teams Supervisor Pairing And Inspecting Relationship Specialty Start Date End Date Denae Garcia FNP [address] [place] [phone] PCP - General 07/25/21 documented as of this encounter
--- OUTSIDE RECORDS SUMMARY | 2024-04-18 15:28 | XMS_ITS | Encounter Summary ---
Author Organization [facility] Address [address] [place] [address] Care Team Providers Care Leak Inspector Name Role Phone Prince Perla MD Primary Care Provider Unavailsaul e Reason for Visit * Reason Onset Date Comments Appointment Related 12/04/2013 12.04.2013 Encounter Details Date Type Department Care Team (Late st Contact Info) Description 12/04/2013 Telephone [facility] Endocrinology - [facility] [address] [place] [address] Dixon Jones, [email or web address] [facility] [address] [place] [address] Appointment Related (12.04.2013) Social History Tobacco Use Types Packs/Day Years Used Date Smoking Tobacco: Never Alcohol Use Standard Drinks/Week Comments Not Asked 0 (1 standard drink = 0.6 oz pur e alcohol) Sex and Gender Information Value Date Recorded Sex Assigned at Not on file Gender Identity Not on file Sexual Orientation Not on file documented as of this encounter Miscellaneous Notes * Telephone Encounter - Nasrin Gutierrez - 12/04/2013 0851 EDT Per pt, received a call stating her appt today needs to be rsc. Per pt, lives in [facility] and is already in [place] for this appt. Per pt, can not have it rsc. Pt requesting you call her back this a.m as soon as you can. documented in this encounter Plan of Treatment Not on file documented as of this encounter Visit Diagnoses Not on filedocumented in this encounter Care Teams Leak Inspector Relationship Specialty Start Date End Date Prince Perla MD PCP - General 10/31/13 07/24/21 documented as of this encounter
--- OUTSIDE RECORDS SUMMARY | 2024-04-18 15:28 | XMS_ITS | Encounter Summary ---
Author Organization [facility] Address [address] [place] [address] Care Team Providers Care Infection Control Specialist Name Role Phone Unavailable Primary Care Provider Unavailabl e Encounter Details Date Type Department Care Team (Late st Contact Info) Description 04/02/2006 Results Only [facility] - [place] [facility] [address] [place] [address] Linda Maier MD [address] [place] [address] [place] [address] Social History Tobacco Use Types Packs/Day Years Used Date Smoking Tobacco: Never Assessed Sex and Gender Information Value Date Recorded Sex Assigned at Not on file Gender Identity Not on file Sexual Orientation Not on file documented as of this encounter Plan of Treatment Not on file documented as of this encounter Procedures Procedure Name Priority Date/Time Associated Diagnosis Comments CYTOPATHOLOGY Routine 04/02/2006 0:00 EDT documented in this encounter Results * CYTOPATHOLOGY (04/02/2006 0:00 EDT) Pathology Report: CYTOPATHOLOGY REPORT Reports generated via electronic interface contain original data; however they are lacking the format of the original report. Caution should be taken when reading/interpreti ng unformatted reports. Name: ? FRANCESCA FIGUEROA ? Accession #: ? [id number] : ? 1985 (Age: 20) ??F ?Collect Date: ? 04/02/2006 Location: ? [facility] ? Receive Date: ? 04/05/2006 Provider: ?LINDA MAIER MD Copy to: ? Specimen/Source: ?ThinPrep Pap Test, Cervix/Endocervix, processed on ivWatch ThinPrep Imaging System, with manual evaluation Last Menstrual Period: ? 03/17/06 Other: ? HPVA - HPV testing requested if ASC-US on the current ThinPrep Pap test. ? SPECIMEN ADEQUACY ? Satisfactory for Evaluation - transformation zone component present GENERAL CATEGORIZATION ? Negative for Intraepithelial Lesion or Malignancy ? Document reviewed and electronically signed by: ? CARLINE Olsen(ASCP) ? Report Date: ??04/07/2006 12:04 End of Report [facility] 04/02/2006 04/05/2006 Linda Maier MD PATHOLOGY ORDERABLES [facility] [address] [place] [address] documented in this encounter Visit Diagnoses Not on filedocumented in this encounter
--- OUTSIDE RECORDS SUMMARY | 2024-04-18 15:28 | XMS_ITS | Encounter Summary ---
Author Organization [facility] Address [address] [place] [address] Care Team Providers Care Air Compressor Engineer Name Role Phone Denae Garcia Primary Care Provider [phone] Reason for Visit * Reason Onset Date Comments Referral Request 04/11/2024 Encounter Details Date Type Department Care Team ([facility] Contact Info) Description 04/11/2024 Telephone [facility] Bariatric Surgery [address] [place], [place] [phone] Bariatric Surgery, Physician Hn Referral Request Social History Tobacco Use Types Packs/Day Years [...] encounter Miscellaneous Notes * Telephone Encounter - Grisel Farley MA - 04/11/2024 1254 EDT Received the patient packet via fax. Sent the patient an email with Step #2 instructions. Called the patient and M to inform that the link was sent to their email on file documented in this encounter Plan of Treatment Not on file documented as of this encounter Visit Diagnoses Not on filedocumented in this encounter Care Teams Air Compressor Engineer Relationship Specialty Start Date End Date Denae Garcia FNP [address] [place] [address] [address] [place] [address] PCP - General 07/25/21 documented as of this encounter
--- OUTSIDE RECORDS SUMMARY | 2024-04-18 15:28 | XMS_ITS | Referral Summary ---
Author Organization [facility] Address [address] [place] [address] Care Team Providers Care Lens Grinding Machine Operator Name Role Phone Jose Denae YOSVANY Primary Care Provider [phone] Encounters Date Type Department Care Team Description 04/11/2024 Telephone [facility] Bariatric Surgery - [place] [address] [place], [place] [phone] Bariatric Surgery, Physician Hn Referral Request from Last 3 Months Allergies No known active allergies Medications Medication [...] tablet Take by mouth daily. Acti ve Social History Tobacco Use Types Packs/Day Years Used Date Smoking Tobacco: Never Smokeless Tobacco: Never Alcohol Use Standard Drinks/Week Comments Yes 0 (1 standard drink = 0.6 oz pur e alcohol) occasionally PHQ-2 Answer Date Recorded PHQ-2 SUBTOTAL 0 07/25/2021 Sex and Gender Information Value Date Recorded Sex Assigned at Not on file Gender Identity Not on file Sexual Orientation Not on file Last Filed Vital Signs Vital Sign Reading [...] 36.31 12/04/2013 1557 EDT Plan of Treatment Not on file Care Teams Lens Grinding Machine Operator Relationship Specialty Start Date End Date Denae Garcia FNP [address] [place] [phone] PCP - General 07/25/21
--- OUTSIDE RECORDS SUMMARY | 2024-04-18 15:28 | XMS_ITS | Encounter Summary ---
Author Organization [facility] Address [address] [place] [address] Care Team Providers Care Project Director Name Role Phone Prince Perla MD Primary Care Provider Giselle smith Encounter Details Date Type Department Care Team (Late st Contact Info) Description 04/13/2019 Results Only [facility] [phone] Janey Garcia, YOSVANY [address] [facility] [address] [place] [address] Social History Tobacco Use Types Packs/Day Years [...] Procedure Name Priority Date/Time Associated Diagnosis Comments PAP TEST- RESULT ONLY Routine 04/13/2019 0:00 EDT documented in this encounter Results * PAP TEST- RESULT ONLY (04/13/2019 0:00 EDT) Pathology Report: CYTOPATHOLOGY REPORT Reports generated via electronic interface contain original data; however they are lacking the format of the original report. Caution should be taken when reading/interpreti ng unformatted reports. Name: ? FRANCESCA FIGUEROA ? Accession #: ? [id number] ? : ? 1985 (Age: 33) ??F ?Collect Date: ? 04/13/2019 ? Location: ? [facility] ? Receive Date: ? 04/17/2019 ? Provider: JANEY GARCIA LABOR CONTRACTOR Copy to: ? Final Report SPECIMEN ADEQUACY ? Satisfactory for Evaluation - transformation zone component present GENERAL CATEGORIZATION ? Negative for Intraepithelial Lesion or Malignancy ?? Last Menstrual Period: 04/03/19 Other: Additional clinical information: Z00.00 Z12.4 Z01.419 Additional clinical information: Difficulty visualizing cervix Specimen/Source: ??Pap Test, Cervix, ThinPrep Imaging System with manual evaluation Document reviewed and electronically signed by: ? Taiwo Velasquez, CT(ASCP) ? Report ??Date: 04/20/2019 13:17 HPV with Pap Test ? Date Ordered: ? 04/20/2019 ? Status: ?? Signed Out ?Date Complete: ? 04/21/2019 ? By: ??System Interface ? Date Reported: ? 04/21/2019 ? Interpretation RESULT: Negative for HPV. No E6 or E7 mRNA is detected from HPV types 16,18,31,33,35, 39,45,51,52,56,58, 59,66, and 68 by church administrator mediated amplification. Comments Document reviewed and electronically signed by: ? System Interface ? Report date: 04/21/2019 By the signature above, the attending physician certifies that he/she has personally conducted a gross and/or microscopic examination of the described specimens and rendered or confirmed the above diagnosis. End of Report [facility] 04/13/2019 04/17/2019 Janey Garcia LABOR CONTRACTOR PATHOLOGY ORDERABLES [facility] [address] [place] [address] documented in this encounter Visit Diagnoses Not on filedocumented in this encounter Care Teams Project Director Relationship Specialty Start Date End Date Prince Perla MD PCP - General 10/31/13 07/24/21 documented as of this encounter
--- OUTSIDE RECORDS SUMMARY | 2024-04-18 15:28 | XMS_ITS | Encounter Summary ---
Author Organization [facility] Address [facility] [place] [address] Care Team Providers Care Cold Type Artist Name Role Phone Kadi Tovar MD Primary Care Provider [phone] Encounter Details Date Type Department Care Team (Late st Contact Info) Description 08/31/2018 2:30 PM EST Office Visit Dermatology at [facility] [address] [place] [address] Deyanira Walters MD [facility] [place] [address] Allergic conjunctivitis, unspecified laterality (Primary Dx); Milia; Contact or allergic dermatitis of left eyelid Social History Tobacco Use Types Packs/Day Years Used Date Smoking Tobacco: Never Smokeless Tobacco: Never Sex and Gender Information Value Date Recorded Sex Assigned at Not on file Gender Identity Not on file Sexual Orientation Not on file documented as of this encounter Patient Instructions * Patient Instructions* Deyanira Walters MD - 08/31/2018 2:30 PM EST Take 1-2 tablets of Zyrtec, Kim, or Claritin daily. Rx: hydrocortisone 2.5% ointment: Apply twice daily to affected areas on EYDLIDS for one week. - discussed w/ pt the side effects of topical steroids, which include atrophy of the skin, tachyphylaxis, allergic reactions, and rarely systemic effects - pt instructed NOT to apply to the face nor intertriginous areas unless instructed to do so. - pt instructed not to use it for more than allotted duration, given the risk of side effects with longer duration of use. Sensitive Skin Care You have sensitive skin that require you to avoid many products that touch your skin. It is very important to follow these instructions. STOP ALL current products that touch your skin. This includes liquid and bar soap, shampoo and conditioner, lotions and creams, laundry soap. They will give you a rash Try your hardest to stick to the following products to reduce the chances of your rash being due toa contact allergen: Soap Avoid liquid cleansers. Exceptions: - CeraVe Hydrating Cleanser - Cetaphil Gentle Skin Cleanser for all skin types - Free & Clear Liquid Cleanser for Sensitive Skin Shampoo - Free & Clear Shampoo Hair Conditioner - Cleure Replenishing Conditioner - DHS Conditioning Rinse with Panthenol Hair Styling Products ([place] & Gel) - Free & Clear Hair [place] (Soft Hold and Firm Hold) - Cleure Hair Styling Gel - Medium Hold Moisturizer - Cream - CeraVe Moisturizing cream (DR. WALTERS's FAVORITE) - CeraVe Renewing SA cream - Vanicream Moisturizing Skin Cream Moisturizer - Lotion - CeraVe Facial Moisturizing Lotion A.M. - CeraVe Moisturizing Lotion - CeraVe Facial Moisturizing Lotion P.M. - CeraVe Renewing Lotion - Cetaphil Oil Control Moisturizer SPF 30 - Vanicream Lite Lotion for Sensitive Skin Sunscreen - Blue Lizard Togolese Sunscreen Sensitive SPF 30+ - COTZ Sunscreen (SPF-30 and SPF 40) Deodorant - Certain Dri Antiperspirant Roll-On for Excessive Perspiration - Old Spice Classic Deodorant Stick Fresh - Old Spice Classic Deodorant Stick Original Toothpaste - Reddy's of [place] Natural (Fluoride-Free and Anticavity Fluoride) Toothpaste for Children, Silly [place] - VMV Hypoallergenics Essence Skin-Saving, Simple-Gentle Toothpaste, VMV USA Lip [place] - Vaseline Lip Therapy Hand Associate Professor Of Library Science - [employer] Quik-Care Waterless Antimicrobial Foaming Hand Rub Shaving Cream & Gel - Vanicream Shave Cream Baby Wipes Earth 's Best TenderCare Chlorine Free Baby Wipes Seventh Generation Chlorine Free Baby Wipes Laundry Detergent Tide Ultra Free & Gentle Powder Laundry Detergent NOTES ON THESE SKIN CARE PRODUCTS These are a few notes which can be very helpful to people struggling with dermatitis (or eczema): -The hypoallergenic skin product diet on this handout outlines products which I have included because they do not contain any of the most common ingredients that can be a cause of skin allergy. The list of is small and limited. The list is based on my experience interviewing and testing many allergic patients and time reviewing labels of products and learning about the importance of allergy. These allergens are well documented and reported in the medical literature as the most common sources ofcontact type allergy. Some of the ingredients are truly uncommon sources of allergy, though among patients with dermatitis or eczema, they are among the most common chemicals to which a person may be allergic. This skin diet does not eliminate all contact allergens, but it does a good job of eliminating the ones most commonly identified. -Just because a product like a lotion or a cream states on the label hypoallergenic it does not mean that such a product can't cause allergy. Even some ingredients considered hypoallergenic (or less apt to cause allergy) by the college sports coach will in some individual be a source of allergy. -Even using a product which does contain an ingredient to which you are unknowingly allergic can worsen or aggravate your skin problem, and keep it going another several weeks. Therefore, only STRICTadherence to the SKIN DIET, using only the products on the list if needed, will be likely to helpresolve your problem if allergy is a cause or important aggravating factor. -Testing for allergy is possible with patch testing. Patch testing may be recommended by your doctor to further evaluate the cause of your rash. For these recommendations to be successful you should: 1. Use only those products on the list that you feel you need, unless otherwise advised by your doctor. 2. Limit your use of skin products. If a moisturizer is needed, the thicker one is better. The mosteffective moisturizer feels greasy and is messy. If this is unacceptable, choose a product recommended in the cream or lotion category. Some people find using a greasy product at night, and a lotion or cream during the day is more acceptable. 3. If you are prescribed a medication, use your medication as advised by your doctor. Rub it in well. It is best to apply it at least one time a day after your skin has absorbed some water from bathing. Pat dry after bath or shower and apply your medication. 4. Follow-up with your doctor if your skin problem fails to resolve or improve. documented in this encounter Progress Notes * Deyanira Walters MD - 08/31/2018 2:30 PM EST Images from the original note were not included. DERMATOLOGY - NEW PATIENT NOTE Date of service: 08/31/2018 Francesca Montemayor : 1985, 33 y.o. Chief Complaint: Concerning Bumps HPI: Francesca Montemayor is a 33 y.o. female with the following concerns: Developed bumps under both eyes. Used Clean&Clear -- no relief. Also tried Noxzema -- somewhat helpful. Developed a larger lesion at one point, which she picked at and there was small amount of clear drainage. Complains of itchy eyeball. Rubs her eyes frequently because eyelids also itchy, especially at the eyelid margin. Uses eyeliners. Personal hx of seasonal allergies and asthma. No childhood eczema. Relevant Skin History: - Skin cancer (including type): No Family History: Melanoma: NO Social History Student Meds: No current outpatient medications on file. No current facility-administered medications for this visit. Allergies: Allergies not on file Review of Systems: - General: Feels well. - Skin: No other skin concerns. Examination: - Constitutional: Patient was alert, well-appearing and in no noticeable distress. - Skin: Focused exam of the face. Diagnosis/Skin findings/Assessment/Plan: # Milia: Approx two dozen 0.5-1 mm slightly hypopigmented papules scattered on the lower eyelids. Benign, reassured patient. Likely 2/2 chronic rubbing of the eyelids due to allergy/atopy. May consider cosmetic removal with identification technician at a later time. # Allergic conjunctivitis and eyelid dermatitis: Mildly erythematous eyelids with minimal scales. Atopic patient, atopy likely contributing to pruritus. -Counseled on sensitive skin care regimen. Handout provided. - Rx: hydrocortisone 2.5% ointment: Apply twice daily to affected areas on EYELIDS for 7 days, thenstop. - discussed w/ pt the side effects of topical steroids, which include atrophy of the skin, tachyphylaxis, allergic reactions, and rarely systemic effects - pt instructed NOT to apply to the face nor intertriginous areas unless instructed to do so. - pt instructed not to use it for more than allotted duration, given the risk of side effects with longer duration of use. Take 1-2 tablets of Zyrtec, Kim, or Claritin daily. -counseled on potential drowsiness. Try to take at night prior to going to bed to help w sleep. Do not operate heavy machinery while on medication. RTC: 6 wks for a eyelid dermatitis f/u. Appointment scheduled upon exiting clinic. Note initiated by Marisol Valadez LPN. I, Marisol Daniel LPN, have performed the documentation for this encounter in the presence of andacting as a scribe for Deyanira Walters MD. I performed the services which were documented by the scribe, and I agree with the accuracy of the documentation in this encounter. Marisol Daniel LPN Reviewed and signed by Deyanira Walters MD Resident in Dermatology [facility] Patient seen in conjunction with staff fire equipment inspector helper: Beatrice Lopez MD Section of Dermatology [facility] Level of Resident Supervision: Direct Supervision (The supervising physician is physically present with the resident and patient). * Beatrice Lopez MD - 08/31/2018 2:30 PM EST I directly supervised Dr. Deyanira Walters during this office visit. Dr. Walters presented the history and physical exam to me. I then saw and examined this patient with Dr. Walters. We reviewed the history and pertinent details and I confirmed the physical findings. I agree with the details of the history and physical exam as documented in Dr. Walters's note. BEATRICE LOPEZ MD Staff Physician documented in this encounter Plan of Treatment Not on file documented as of this encounter Visit Diagnoses Diagnosis Allergic conjunctivitis, unspecified laterality- Primary Milia Sebaceous cyst Contact or allergic dermatitis of left eyelid Contact and allergic dermatitis of eyelid documented in this encounter Care Teams Cold Type Artist Relationship Specialty Start Date End Date Kadi Tovar MD [address] [place] [address] PCP - General Family Medicine 08/31/18 documented as of this encounter
--- OUTSIDE RECORDS SUMMARY | 2024-04-18 15:28 | XMS_ITS | Encounter Summary ---
Author Organization [facility] Address [address] [place] [address] Care Team Providers Care Nursery Worker Name Role Phone Unavailable Primary Care Provider Unavailabl e Encounter Details Date Type Department Care Team (Late st Contact Info) Description 09/04/2009 Orders Only [facility] Laboratory Services - [facility] [address] [place] [address] [id number] Violetta Vickers, APPLICATION SOFTWARE DEVELOPER Social History Tobacco Use Types Packs/Day Years Used Date Smoking Tobacco: Never Assessed Sex and Gender Information Value Date Recorded Sex Assigned at Not on file Gender Identity Not on file Sexual Orientation Not on file documented as of this encounter Plan of Treatment Not on file documented as of this encounter Procedures Procedure Name Priority Date/Time Associated Diagnosis Comments CYTOPATHOLOGY Routine 09/04/2009 0:00 EST documented in this encounter Results * CYTOPATHOLOGY (09/04/2009 0:00 EST) Pathology Report: CYTOPATHOLOGY REPORT ? Reports generated via electronic interface contain original data; ? however they are lacking the format of the original report. ? Caution should be taken when reading/interpreti ng unformatted reports. ? Name: ? FRANCESCA FIGUEROA ? Accession #: ? [id number] ? : ? 1985 (Age: 24) ??F ?Collect Date: ? 09/04/2009 ? Location: ? [facility] ? Receive Date: ? 09/05/2009 ? Provider: ?VIOLETTA M LINO APPLICATION SOFTWARE DEVELOPER ? Copy to: ? Specimen/Source: ?Pap Test, Cervix/Endocervix, ThinPrep Imaging System ? with manual evaluation ? Last Menstrual Period: ? 12/21/09 ? Hormonal/Contracep tive Status: ? Oral contraceptives ? Other: ? HPVA - HPV testing requested if ASC-US on the current ThinPrep Pap test. ? SPECIMEN ADEQUACY ? Satisfactory for Evaluation ? - transformation zone component present ? GENERAL CATEGORIZATION ? Negative for Intraepithelial Lesion or Malignancy ? Document reviewed and electronically signed by: ? Eve Pziano, SCT(ASCP) ? Report Date: ??09/06/2009 13:06 ? End of Report ? [facility] 09/04/2009 09/05/2009 Violetta Vickers APPLICATION SOFTWARE DEVELOPER PATHOLOGY ORDERABLES [facility] [address] [place] [address] documented in this encounter Visit Diagnoses Not on filedocumented in this encounter
--- OUTSIDE RECORDS SUMMARY | 2024-04-18 15:28 | XMS_ITS | Encounter Summary ---
Author Organization [facility] Address [address] [place] [address] Care Team Providers Care Hide Measuring Machine Operator Name Role Phone Prince Perla MD Primary Care Provider Denae Valle Primary Care Provider [phone] Encounter Details Date Type Department Care Team (Late st Contact Info) Description 08/28/2020 Lab Requisition [facility] Pathology & Laboratory Medicine - [facility] [address] [place] [address] Outr Resulting Lab, Provider Social History Tobacco [...] Procedure Name Priority Date/Time Associated Diagnosis Comments ZZCOVID-19 TEST [facility] PCR Today 08/27/2020 13:00 EST COVID-19 TESTING Routine 08/27/2020 13:0 0 EST documented in this encounter Results * COVID-19 TEST [facility] PCR (08/27/2020 13:00 EST) Swab ENTIRE NASOPHARYNX / Unknown 08/27/2020 13:00 EST 08/28/2020 20:28 EST Provider Outr Resulting Lab MICROBIOLOGY - GENERAL ORDERABLES [facility] [address] [place] [address] * COVID-19 TESTING (08/27/2020 13:00 EST) COVID-19 rt-PCR Result Negative Negative 08/29/2020 3:34 EST [facility] Comment: This test has not been FDA cleared or approved. This test has been authorized by FDA under an EUA for use by authorized laboratories. This test has been authorized only for detection of nucleic acid from 2019-nCoV, not for any other viruses or pathogens. This test is only authorized for the duration of the declaration that circumstances exist justifying the authorization of emergency use of in vitro diagnostic tests for detection and/or diagnosis of 2019-nCoV under section 564(b)(1) of Act, 21 U.S.C ?? 360bbb-3(b) (1), unless the authorization is terminated or revoked sooner. Negative results do not preclude 2019-nCoV infection and should not be used as the sole basis for treatment or other patient management decisions. Negative results must be combined with clinical observations, patient history, and epidemiological information. Performed on the AlphaSights Fusion instrument Performing Lab Mode [facility] 08/29/2020 3:34 EST [facility] Swab 08/27/2020 13:0 0 EST 08/28/2020 20:28 EST Provider Outr Resulting Lab MICROBIOLOGY - GENERAL ORDERABLES [facility] [address] [place] [address] documented in this encounter Visit Diagnoses Not on filedocumented in this encounter Care Teams Hide Measuring Machine Operator Relationship Specialty Start Date End Date Prince Perla MD PCP - General 10/31/13 07/24/21 Denae Garcia FNP [address] [facility] [address] [place] [phone] PCP - General 07/25/21 documented as of this encounter
[2024-04-18 21:55] LABS: HCT 35.8 % (36.0-46.0); HGB 11.8 g/dL (11.2-15.7); MCH 23.7 pg (27.0-33.0); MPV 11.4 fL (8.0-11.0); Platelet Count 207 10^3/uL (130-400); RBC 4.98 10^6/uL (3.93-5.22); RDW 14.2 % (11.7-14.6); RDW-SD 36.2 fL; WBC 12.19 10^3/uL (4.4-10.8)
[2024-04-18 22:38] LABS: MCV 72 fL (80-95)
[2024-04-18 23:09] LABS: Iron 69 ug/dL (50-170); Total Iron Binding Capacity 385 ug/dL (250-450)
[2024-04-18 23:11] LABS: TSH (W/Ref FT4) 2.61 uIU/mL (0.36-3.74)
== END 2024-04-18 15:24 | disposition home or self-care (01) ==
LOC: NCHCN 15:23
PROVIDERS: PCP Family Medicine; Visit Provider Nurse Practitioner Family
DX: N93.9 Abnormal uterine and vaginal bleeding, unspecified (principal)
CPT/HCPCS: 85027; 83540; 83550; 84443

== ENCOUNTER 2024-05-13 13:55 | Outpatient (CLI) | payer BC, SELFPAY ==
--- NOTE | 2024-05-13 | DI.RAD_ITS ---
Exam(s) XR CHEST 2V PA LATERAL EXAM: XR CHEST 2V PA LATERAL CLINICAL HISTORY: cough ICD-10:R05.9 TECHNIQUE: 2D digital imaging was performed. Two views. COMPARISON: CR CHEST 2 VIEWS PA,LAT from 10/23/2013 FINDINGS: HEART: Normal size. Aorta: Not dilated. PULMONARY VASCULATURE: Normal. MEDIASTINUM: Unremarkable. LUNGS: Right upper lobe pneumonia. Mildly increased densities in the right inferior hilar region. L eft lung appears clear. PLEURAL SPACE: No pleural effusion or pneumothorax. BONE:Unremarkable for age. SOFT TISSUES: Unremarkable. IMPRESSION: Right upper lobe consolidation. Milder infiltrates seen in the right inferior hilar region. DATA REPOSITORY: RADIATION DOSE DELIVERED:
--- OUTSIDE RECORDS SUMMARY | 2024-05-13 14:01 | XMS_ITS | Encounter Summary ---
Author Organization [facility] Address [address] [place] [address] Care Team Providers Care Burlapper Name Role Phone Unavailable Primary Care Provider Unavailabl e Encounter Details Date Type Department Care Team (Late st Contact Info) Description 04/02/2006 Results Only [facility] [address] [place] [address] Linda Maier MD [address] [place] [address] [place] [address] Social History Tobacco Use Types Packs/Day Years [...] ? FRANCESCA FIGUEROA ? Accession #: ? [id number] : ? 1985 (Age: 20) ??F ?Collect Date: ? 04/02/2006 Location: ? [facility] ? Receive Date: ? 04/05/2006 Provider: ?LINDA MAIER MD Copy to: ? Specimen/Source: ?ThinPrep Pap Test, Cervix/Endocervix, processed on [employer] ThinPrep Imaging System, with manual evaluation Last [...] MD PATHOLOGY ORDERABLES [facility] [address] [place] [address] documented in this encounter Visit Diagnoses Not on filedocumented in this encounter
--- OUTSIDE RECORDS SUMMARY | 2024-05-13 14:01 | XMS_ITS | Encounter Summary ---
Author Organization [facility] Address [address] [place] [address] Care Team Providers Care Senior Web Analyst Name Role Phone Prince Perla MD Primary Care Provider Unavailsaul e Reason for Visit * Reason Onset Date Comments Appointment Related 12/04/2013 12.04.2013 Encounter Details Date Type Department Care Team (Late st Contact Info) Description 12/04/2013 Telephone [facility] Endocrinology - [facility] [address] [place] [address] Dixon Jones, [address] [facility] [address] [place] [address] Appointment Related (12.04.2013) Social History [...] to be rsc. Per pt, lives in [facility] and is already in [place] for this appt. Per pt, can not have it rsc. Pt requesting you call her back this a.m as soon as you can. documented in this encounter Plan of Treatment Not on file documented as of this encounter Visit Diagnoses Not on filedocumented in this encounter Care Teams Senior Web Analyst Relationship Specialty Start Date End Date Prince Perla MD PCP - General 10/31/13 07/24/21 documented as of this encounter
--- OUTSIDE RECORDS SUMMARY | 2024-05-13 14:01 | XMS_ITS | Encounter Summary ---
Author Organization [facility] Address [address] [place] [address] Care Team Providers Care Sales And Service Agent Name Role Phone Denae Garcia Primary Care Provider [phone] Reason for Visit * Reason Onset Date Comments Referral Request 04/11/2024 Encounter Details Date Type Department Care Team ([facility] Contact Info) Description 04/11/2024 Telephone [facility] Bariatric Surgery [address] [place], [place] [id number] Bariatric Surgery, Physician Hn Referral Request Social [...] on filedocumented in this encounter Care Teams Sales And Service Agent Relationship Specialty Start Date End Date Denae Garcia FNP [address] [place] [address] [address] [place] [address] PCP - General 07/25/21 documented as of this encounter
--- OUTSIDE RECORDS SUMMARY | 2024-05-13 14:01 | XMS_ITS | Encounter Summary ---
Author Organization [facility] Address [facility] [place] [address] Care Team Providers Care Route Delivery Clerk Name Role Phone Kadi Tovar MD Primary Care Provider [phone] Encounter Details Date Type Department Care Team (Late st Contact Info) Description 08/31/2018 2:30 PM EST Office Visit Dermatology at [facility] [address] [place] [address] Deyanira Walters MD [facility] [place] [address] Allergic conjunctivitis, unspecified laterality (Primary Dx); Milia; [...] Conditioning Rinse with Panthenol Hair Styling Products ([place] & Gel) - Free & Clear Hair [place] (Soft Hold and Firm Hold) - Cleure [...] for Sensitive Skin Sunscreen - Blue Lizard [place]ese Sunscreen Sensitive SPF 30+ - COTZ Sunscreen (SPF-30 and SPF 40) Deodorant - Certain Dri Antiperspirant Roll-On for Excessive Perspiration - Old Spice Classic Deodorant Stick Fresh - Old Spice Classic Deodorant Stick Original Toothpaste - Reddy's of [place] Natural (Fluoride-Free and Anticavity Fluoride) Toothpaste for Children, Silly [place] - VMV Hypoallergenics Essence Skin-Saving, Simple-Gentle Toothpaste, VMV USA Lip [place] - Vaseline Lip Therapy Hand Dining Room Cashier - [employer] Quik-Care Waterless Antimicrobial Foaming Hand [...] less apt to cause allergy) by the canvas goods fabricator will in some individual be a source [...] to allergy/atopy. May consider cosmetic removal with network operations technician at a later time. # Allergic [...] by Deyanira Walters MD Resident in Dermatology [facility] Patient seen in conjunction with staff supervisor grips: Beatrice Lopez MD Section of Dermatology [facility] Level of Resident Supervision: Direct Supervision (The [...] eyelid documented in this encounter Care Teams Route Delivery Clerk Relationship Specialty Start Date End Date Kadi Tovar MD [address] [place] [address] PCP - General Family Medicine 08/31/18 documented as of this encounter
--- OUTSIDE RECORDS SUMMARY | 2024-05-13 14:01 | XMS_ITS | Referral Summary ---
Author Organization [facility] Address [address] [place] [address] Care Team Providers Care Coremaker Floor Name Role Phone Milvia Garciay YOSVANY Primary Care Provider [phone] Encounters Date Type Department Care Team Description 04/21/2024 Telephone [facility] Bariatric Surgery [facility] [address] [place] [address] Bariatric Surgery, Physician Hn Referral Related 04/11/2024 Telephone [facility] Bariatric Surgery [facility] [address] [place], [place] [phone] Bariatric Surgery, Physician Hn Referral Request from [...] of Treatment Not on file Care Teams Coremaker Floor Relationship Specialty Start Date End Date Denae Garcia FNP [address] [place] [place] [address] [address] [place] [phone] PCP - General 07/25/21
--- OUTSIDE RECORDS SUMMARY | 2024-05-13 14:01 | XMS_ITS | Encounter Summary ---
Author Organization [facility] Address [address] [place] [address] Care Team Providers Care Enrollment Management Manager Name Role Phone Denae Garcia Primary Care Provider Reason for Visit * Reason Onset Date Comments Referral Related 04/21/2024 Encounter Details Date Type Department Care Team ([facility] st Contact Info) Description 04/21/2024 Telephone [facility] Bariatric Surgery [address] [place], [place] [phone] Bariatric Surgery, Physician Hn Referral Related Social History Tobacco Use Types Packs/Day Years [...] Telephone Encounter - Grisel Farley MA - 04/21/2024 1520 EDT 1st attempt. LVM to see if pt is still interested in the program. On step 2 documented in this encounter Plan of Treatment Not on file documented as of this encounter Visit Diagnoses Not on filedocumented in this encounter Care Teams Enrollment Management Manager Relationship Specialty Start Date End Date Denae Garcia FNP [address] [facility] [address] [place] [phone] PCP - General 07/25/21 documented as of this encounter
--- OUTSIDE RECORDS SUMMARY | 2024-05-13 14:01 | XMS_ITS | Encounter Summary ---
Author Organization [facility] Address [address] [place] [address] Care Team Providers Care Bottle Sorter Name Role Phone Unavailable Primary Care Provider Unavailabl e Encounter Details Date Type Department Care Team (Late st Contact Info) Description 09/04/2009 Orders Only [facility] Laboratory Services - [facility] ([facility]) [address] [place] [address] [phone] Violetta Vickers, STRATEGIC SOURCING SPECIALIST Social History Tobacco Use Types Packs/Day Years [...] ? 09/05/2009 ? Provider: ?VIOLETTA M LINO STRATEGIC SOURCING SPECIALIST ? Copy to: ? Specimen/Source: ?Pap Test, [...] reviewed and electronically signed by: ? Eve Pizano, SCT(ASCP) ? Report Date: ??09/06/2009 13:06 ? End of Report ? [facility] 09/04/2009 09/05/2009 Violetta Vickers STRATEGIC SOURCING SPECIALIST PATHOLOGY ORDERABLES [facility] [address] [place] [address] documented in this encounter Visit Diagnoses Not on filedocumented in this encounter
--- OUTSIDE RECORDS SUMMARY | 2024-05-13 14:01 | XMS_ITS | Encounter Summary ---
Author Organization [facility] Address [address] [place] [address] Care Team Providers Care Silver Recovery Operator Name Role Phone Prince Perla MD Primary Care Provider Denae Valle Primary Care Provider [phone] Encounter Details Date Type Department Care Team (Late st Contact Info) Description 08/28/2020 Lab Requisition [facility] Pathology & Laboratory Medicine - [facility] [address] [place] [address] Outr Resulting Lab, Provider Social History Tobacco [...] Outr Resulting Lab MICROBIOLOGY - GENERAL ORDERABLES [facility] [address] [place] [address] * COVID-19 TESTING (08/27/2020 13:00 EST) COVID-19 rt-PCR Result Negative Negative 08/29/2020 3:34 EST [facility] Comment: This test has not [...] history, and epidemiological information. Performed on the COZero Fusion instrument Performing Lab [place] [employer] [facility] 08/29/2020 3:34 EST [facility] Swab 08/27/2020 13:0 0 EST 08/28/2020 20:28 EST Provider Outr Resulting Lab MICROBIOLOGY - GENERAL ORDERABLES [facility] [address] [place] [address] documented in this encounter Visit Diagnoses Not on filedocumented in this encounter Care Teams Silver Recovery Operator Relationship Specialty Start Date End Date Prince Perla MD PCP - General 10/31/13 07/24/21 Denae Garcia FNP [address] [facility] [address] [place] [phone] PCP - General 07/25/21 documented as of this encounter
--- OUTSIDE RECORDS SUMMARY | 2024-05-13 14:01 | XMS_ITS | Clinical Summary ---
Author Organization [facility] Address [address] [place] [address] Care Team Providers Care Research Analyst Name Role Phone Denae Garcia YOSVANY Primary Care Provider [phone] Allergies No known active allergies Medications Medication [...] Type Department Care Team Description 04/21/2024 Telephone [facility] B[facility]ric [facility] [address] [place], [place] [address] Bariatric Surgery, Physician Hn Referral Related 04/11/2024 Telephone [facility] B[facility]ric [facility] [address] [place], [place] [id number] Bariatric Surgery, Physician Hn Referral Request from [...] COVID-19 Vaccine (2022- season) 2023 Care Teams Research Analyst Relationship Specialty Start Date End Date Denae Garcia FNP [address] [place] [phone] PCP - General 07/25/21
--- OUTSIDE RECORDS SUMMARY | 2024-05-13 14:01 | XMS_ITS | Clinical Summary ---
Author Organization [facility] [place] [address] Care Team Providers Care Manager Metal Name Role Phone Kadi Tovar MD Primary Care Provider [phone] Allergies No known active allergies Medications Medication [...] 2016 Covid-19 Vaccine ( - 2022-24 season) 2024 Influenza (Flu) vaccine (1 o f 1 - Influenza standard series) 04/30/2024 Care Teams Manager Metal Relationship Specialty Start Date End Date Kadi Tovar MD [address] [place] [address] PCP - General Family Medicine 08/31/18
--- OUTSIDE RECORDS SUMMARY | 2024-05-13 14:01 | XMS_ITS | Encounter Summary ---
Author Organization [facility] Address [address] [place] [address] Care Team Providers Care Public Information Director Name Role Phone Prince Perla MD Primary Care Provider Denae Valle Primary Care Provider [phone] Encounter Details Date Type Department Care Team (Late st Contact Info) Description 08/03/2020 Lab Requisition [facility] Pathology & Laboratory Medicine - [facility] [address] [place] [address] Outr Resulting Lab, Provider Social History Tobacco [...] in accordance with CLIA regulations, [employer] [place] [employer] (CAP) guidelines (Nov 16, 2019), and FDA guidance (Oct 28, 2019). This test is only for use under the Food and Drug Administration's Emergency Use Authorization. Swab ENTIRE NASOPHARYNX / Unknown 08/02/2020 13:10 EST 08/03/2020 22:38 EST Provider Outr Resulting Lab MICROBIOLOGY - GENERAL ORDERABLES [facility] [place], [place] * COVID-19 TESTING (08/02/2020 13:10 EST) COVID-19 rt-PCR Result NEGATIVE Negative 08/06/2020 10:02 EST [facility] Comment: 2019-novel Coronavirus (2019-nCoV) not detected [...] in accordance with CLIA regulations, [employer] [place] [employer] (CAP) guidelines (Nov 16, 2019), and FDA guidance (Oct 28, 2019). This test is only for use under the Food and Drug Administration's Emergency Use Authorization. Performing Lab [facility] 08/06/2020 10:02 EST [facility] Swab 08/02/2020 13:1 0 EST 08/03/2020 22:38 EST Provider Outr Resulting Lab MICROBIOLOGY - GENERAL ORDERABLES [facility] [address] [place] [address] [facility] [place] documented in this encounter Visit Diagnoses Not on filedocumented in this encounter Care Teams Public Information Director Relationship Specialty Start Date End Date Prince Perla MD PCP - General 10/31/13 07/24/21 Denae Garcia FNP [address] [place] [phone] PCP - General 07/25/21 documented as of this encounter
--- OUTSIDE RECORDS SUMMARY | 2024-05-13 14:01 | XMS_ITS | Encounter Summary ---
Author Organization [facility] Address [address] [place] [address] Care Team Providers Care Computer Graphic Designer Name Role Phone Prince Perla MD Primary Care Provider Giselle smith Encounter Details Date Type Department Care Team (Late st Contact Info) Description 04/13/2019 Results Only [facility] [phone] Janey Garcia, YOSVANY [address] [facility] [address] [place] [address] Social History Tobacco Use Types [...] ? FRANCESCA FIGUEROA ? Accession #: ? [id number] ? : ? 1985 (Age: 33) ??F ?Collect Date: ? 04/13/2019 ? Location: ? [facility] ? Receive Date: ? 04/17/2019 ? Provider: JANEY GARCIA TRANSFER COORDINATOR Copy to: ? Final Report SPECIMEN ADEQUACY [...] types 16,18,31,33,35, 39,45,51,52,56,58, 59,66, and 68 by cogeneration technician mediated amplification. Comments Document reviewed and electronically signed by: ? System Interface ? Report date: 04/21/2019 By the signature above, the attending physician certifies that he/she has personally conducted a gross and/or microscopic examination of the described specimens and rendered or confirmed the above diagnosis. End of Report [facility] 04/13/2019 04/17/2019 Janey Garcia TRANSFER COORDINATOR PATHOLOGY ORDERABLES [facility] [address] [place] [address] documented in this encounter Visit Diagnoses Not on filedocumented in this encounter Care Teams Computer Graphic Designer Relationship Specialty Start Date End Date Prince Perla MD PCP - General 10/31/13 07/24/21 documented as of this encounter
--- OUTSIDE RECORDS SUMMARY | 2024-05-13 14:01 | XMS_ITS | Encounter Summary ---
Author Organization [facility] Address [address] [place] [address] Care Team Providers Care Sourcing Coordinator Name Role Phone Denae Garcia YOSVANY Primary Care Provider [phone] Reason for Visit * Reason Comments Rash pt states pt states having itchy raised body rash since wednesday getting progressivly worse with unkown unenviromental exposure Encounter Details Date Type Department Care Team (Latest Contact Info) Description 07/25/2021 8:22 EST - 07/25/2021 8:46 EST Hospital Encounter [facility] [address] [place] [id number] Chandu Wang MD [address] [place] [address] Acute urticaria (Primary Dx) Discharge [...] be sent through Care Everywhere. * Urticaria ([place]) documented in this encounter Medications at Time [...] Code Departure Means Destination Home or Self Snf documented in this encounter ED Notes * [...] of further medications. Upon departure from [facility], the patient's pain was 0 on a zero to ten scale. Any further pain treatment will be at the discretion of the provider following up with the patient based on their clinical assessment . Condition at departure from the [facility] : Stable [facility] 07/25/2021 8:43 * Judy Rosario RN - [...] 03/18/2021 added in this encounter Care Teams Sourcing Coordinator Relationship Specialty Start Date End Date Denae Garcia FNP [address] [place] [phone] PCP - General 07/25/21 documented as of this encounter
--- OUTSIDE RECORDS SUMMARY | 2024-05-13 14:01 | XMS_ITS | Encounter Summary ---
Author Organization [facility] Address [address] [place] [address] Care Team Providers Care Manager Sterile Name Role Phone Prince Perla MD Primary Care Provider Unavailsaul e Reason for Visit * Reason Comments Diabetes Encounter Details Date Type Department Care Team (Latest Contact Info) Description 12/04/2013 16:00 EDT Office Visit [facility] Endocrinology - [address] [address] Chaz Nettles MD PhD [address] [place] [address] [address] [place] [address] Steroid-induced hyperglycemia (Primary Dx) Social [...] Chaz Nettles MD - 12/04/2013 1615 EDT [facility] Diabetes Initial Evaluation Note CHIEF COMPLAINT: Francecsa Figueroa presents with Hyperglycemia after steroid use [...] at this time. Supportive mother. 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 REVIEW OF SYSTEMS: See HPI, Ten point [...] diet and daily exercise. No sign of Hawley's at this time. Steroids can lead to [...] glucose documented in this encounter Care Teams Manager Sterile Relationship Specialty Start Date End Date Prince Perla MD PCP - General 10/31/13 07/24/21 documented as of this encounter
--- NOTE | 2024-05-13 14:41 | DI.VRAD_ITS ---
Addendum created by Marlon Solano MD on 05/13/2024 2:50:58 PM EDT: THIS REPORT CONTAINS FINDINGS THAT MAY BE CRITICAL TO PATIENT CARE. The findings were verbally communicated via telephone conference with Bre Doan at 2:50 PM EDT on 05/13/2024. The findings were acknowledged and understood. Initial report created on 05/13/2024 2:41:00 PM EDT: PROCEDURE INFORMATION: Exam: XR Chest Exam date and time: 05/13/2024 2:08 PM Age: 39 years old Clinical indication: Cough TECHNIQUE: Imaging protocol: Radiologic exam of the chest. Views: 2 views. COMPARISON: No relevant prior studies available. FINDINGS: Lungs: Right upper lobe consolidation. Right infrahilar airspace opacities. Pleural spaces: Unremarkable. No pleural effusion. No pneumothorax. Heart/Mediastinum: Unremarkable. No cardiomegaly. Bones/joints: Unremarkable. IMPRESSION: Multilobar right lung pneumonia. Follow-up to resolution is recommended as clinically warranted. Dictated and Authenticated by: Marlon Solano MD. Ordering:SHIRA Díaz MD
== END 2024-05-13 14:15 ==
PROVIDERS: PCP Family Medicine; Visit Provider Physician Assistant Medical
DX: R91.8 Other nonspecific abnormal finding of lung field (principal); R05.9 Cough, unspecified
CPT/HCPCS: 71046

== ENCOUNTER 2024-08-15 21:33 | Outpatient (REF) | payer BC, SELFPAY ==
[2024-08-15 22:36] LABS: COMMENT (LAB VIEW ONLY) 88.18 mg/dL; Microalb ug/mg Crea 30.3 ug/mg Cr
== END 2024-08-15 21:34 | disposition home or self-care (01) ==
LOC: NCHCN 21:33
PROVIDERS: PCP Family Medicine; Visit Provider Nurse Practitioner Family
DX: I10 Essential (primary) hypertension (principal)
CPT/HCPCS: 82043; 82570

== ENCOUNTER 2025-02-21 00:30 | Outpatient (CLI) | payer BC, SELFPAY ==
--- NOTE | 2025-02-21 09:50 | DI.US_ITS ---
Exam(s) US BREAST LT COMPLETE MG MAMMO DIAGNOSTIC BI EXAM: MG MAMMO DIAGNOSTIC BI CLINICAL HISTORY: Mass of lower outer quadrant of lt breast, N63.23. COMPARISON: US US BREAST LT COMPLETE from 02/21/2025 . Baseline mammogram TECHNIQUE: Craniocaudal and mediolateral oblique Full Field Digital Mammography views of both breasts with Computer Aided Diagnosis followed by Tomosynthesis and left breast ultrasound. FINDINGS: Mammography/Tomosynthesis: Masses: Dense spiculated mass in the lateral left breast measuring 17 x 15 millimeters. No associated calcifications or calcifications elsewhere in either breast. No additional masses in either breast. No abnormal lymph nodes are identified. Architectural Distortion: None seen. Microcalcifications: No suspicious pleomorphic-type are seen. Skin Thickening/Nipple Retraction: None. Left breast US: Echotexture: Normal appearance of the glandular tissue. Shadowing: No suspicious foci. Cyst: None. Solid lesions: 1.1 x 1.0 x 1.6 centimeter spiculated, shadowing mass in the 4 o'clock position, 6 cm from the nipple. No additional masses are identified. Ductal dilation: None. 2.7 centimeter lymph node is noted in the left axilla which shows normal morphology. No suspicious lymph nodes. IMPRESSION: 1. Suspicious, spiculated mass noted in the lateral left breast. 2. Biopsy recommended. 3. Findings discussed with the patient and called to the triage nurse at [facility]. BI-RADS Category 5 - Highly Suggestive of Malignancy: Biopsy recommended Breast Density - Category A - The breast are almost entirely fatty. Breast density Category C or D implies that the patient has dense breast tissue. Dense breast tissue can make it harder to find cancer on a mammogram. Dense breast tissue is also associated with an increased risk of breast cancer. This information about the result of the mammogram report was provided to the patient to raise their awareness. Use this report when you speak with the patient about their risks for breast cancer, which includes their family history. At that time, you may recommend additional screening tests (Ultrasound or MRI) as these tests may add significant information. A negative radiographic report should not delay biopsy if a dominant or clinically suspicious mass is present. Up to ten percent of cancers are not identified on mammography. A negative report may reinforce clinical impression. Adenosis and dense breasts may obscure an underlying neoplasm. False positive reports average 6 to 10%. Patient will receive a letter notifying them of these results.
== END 2025-02-21 00:50 ==
PROVIDERS: PCP Family Medicine; Visit Provider Nurse Practitioner Family
DX: Z12.31 Encounter for screening mammogram for malignant neoplasm of breast (principal); N63.23 Unspecified lump in the left breast, lower outer quadrant
CPT/HCPCS: 76642; 77062; 77066; G0279